=== PATIENT | female | born 1930 | race Caucasian/White ===

== ENCOUNTER → 2017-02-23 | Outpatient (CLI) | payer MEDICARE, BC ==
[2015-09-21 14:50] VITALS: BP 164/79
[~2017-02-23] MED LIST: AMLODIPINE BESYL5 MG PO; CIPRO 250MG TA250 MG PO; ST. JOSEPH81 M2 PO; TRIAMTERENE/HCT1 TAB PO
== END ==
LOC: LAB 14:30
DX: I10 Essential (primary) hypertension (principal); G30.1 Alzheimer's disease with late onset; M19.90 Unspecified osteoarthritis, unspecified site

== ENCOUNTER → 2020-03-19 | Outpatient (CLI) | payer MEDICARE, BC ==
[2020-03-11 13:39] VITALS: BP 125/74
[~2020-03-19] MED LIST changes: +ASPIRIN E.C. 8181 MG; +DONEPEZIL HCL5 M1 PO; +HCTZ 25MG25 MG PO
[2020-03-19 15:35] LABS: HEMATOCRIT 38.6 % (37.0-47.0); HEMOGLOBIN 12.7 g/dL (12.5-16.0); MEAN CELL VOLUME 95 fl (78-100); MEAN CORPUSCULAR HEMOGLOBIN 31 pg (27-31); MEAN CORPUSCULAR HGB CONC 33 g/dL (33-37); MEAN PLATELET VOLUME 9.6 fl (7.4-10.4); PLATELET COUNT 290 K/mm3 (130-400); RED BLOOD COUNT 4.06 M/mm3 (4.10-5.30); RED CELL DISTRIBUTION WIDTH 13.2 % (11.5-14.5); WHITE BLOOD COUNT 5.7 K/mm3 (4.8-10.8)
[2020-03-19 15:54] LABS: POTASSIUM 3.9 mmol/L (3.5-5.1)
[2020-03-19 15:55] LABS: CALCIUM 9.4 mg/dL (8.3-10.5)
[2020-03-19 16:45] LABS: LYMPHOCYTE 29 % (20-51); MONOCYTE 11 % (3-10); NEUTROPHILS 59 % (42-75)
== END ==
LOC: LAB 15:21
PROVIDERS: Physician Assistant
DX: Z09 Encounter for follow-up examination after completed treatment for conditions other than malignant neoplasm (principal); I10 Essential (primary) hypertension; E87.6 Hypokalemia; F03.90 Unspecified dementia, unspecified severity, without behavioral disturbance, psychotic disturbance, mood disturbance, and anxiety; I35.8 Other nonrheumatic aortic valve disorders